=== PATIENT | female | born 1945 | race Asian ===

== ENCOUNTER 2017-12-26 13:25 | Day surgery (SDC) | payer OTHER ==
[2017-12-24 16:00] VITALS: BMI 20.6
[2017-12-26] MEDS ORDERED: MIDAZOLAM HCL 2 MG/2 ML SINGLE DOSE VIAL ONE (14:45)
[2017-12-26] MEDS ORDERED: PROPOFOL 20 ML ONE (14:45)
[2017-12-26] MEDS ORDERED: LIDOCAINE HCL/PF 2% SDV 5ML VIAL ONE (14:45)
[2017-12-26] MEDS ORDERED: LIDOCAINE HCL 2% (20ML MULTI-DOSE VIAL) NR ONE (14:46)
[2017-12-26] MEDS ORDERED: ONDANSETRON 4 MG/2 ML VIAL IVPUSH PRN (15:54)
[2017-12-26] MEDS ORDERED: oxyCODONE HCL 5 MG TABLET PO PRN (15:54)
[2017-12-26 15:58] VITALS: TEMP 97.6
[2017-12-26] MEDS ORDERED: LACTATED RINGERS SOLUTION 1,000 ML IV SCH (16:00)
[2017-12-26 16:22] VITALS: BP 114/60; PULSE 65
--- NOTE | 2017-12-27 10:15 | OP ---
DATE OF OPERATION: 12/26/2017 PREOPERATIVE DIAGNOSIS: Left long finger mucoid cyst and distal interphalangeal joint osteoarthritis. POSTOPERATIVE DIAGNOSIS: Left long finger mucoid cyst and distal interphalangeal joint osteoarthritis. OPERATIVE PROCEDURE: 1. Left long finger mass/mucoid cyst excision. 2. Left long finger distal interphalangeal joint debridement and synovectomy. SURGEON: Kevin Mandujano MD ANESTHESIA: Local with sedation. COMPLICATIONS: None. ESTIMATED BLOOD LOSS: Minimal. INDICATION FOR PROCEDURE: The patient is a 72-year-old female with the above finding indicated for operative treatment. Risks, benefits, and alternatives were discussed with the patient at length. Proper informed consent was obtained. DESCRIPTION OF PROCEDURE: After proper identification of patient and correct operative site, the patient was brought to the operating room and placed supine on the table, bony prominences well padded. Sedation was given by the anesthesiologist. Local anesthesia was given with 2% lidocaine. Left upper extremity was prepped and draped in the usual sterile fashion. A well-padded tourniquet was placed with a sterile prep. Esmarch bandage was used to exsanguinate the left upper extremity. Tourniquet was inflated to 250 mmHg. An incision was made over the distal aspect of the distal interphalangeal joint to the long finger. Incision was taken sharply to the skin with bluntly and sharply dissection to the subcutaneous tissues. Mass was identified as a cyst emanating from the distal interphalangeal joint and was excised in whole. The joint was also opened, and a bone spur was debrided and synovectomy was performed. Wound was irrigated with saline and repaired with a 5-0 nylon suture. Sterile dressings were applied. The patient was reversed from anesthesia and brought to the recovery room in stable condition. She tolerated the procedure well. KEVIN MANDUJANO M.D. [id number]
--- NOTE | 2018-01-01 15:09 | PATH ---
Surgical Pathology Report Patient Name: ANTHONY RUTHERFORD [facility]. Rec. #: [id number] /Age/Gender: 1945 (Age: 72) / F Account: [id number] Location: [facility] AMBULATORY Taken: 12/26/2017 Received: 12/26/2017 Reported: 01/01/2018 Physicians: Kevin Wilde M.D. Specimen(s) Received LEFT LONG FINGER MASS Clinical History Left long finger mucoid cyst Final Diagnosis LEFT LONG FINGER, MASS, EXCISION: DIGITAL MUCOUS (GANGLION) CYST. Electronically Signed Hina Tavarez M.D. Gross Description Received in formalin labeled "left long finger mass," is a 0.4 x 0.3 x 0.2 cm portion of ramírez soft tissue, possibly consistent with a cyst. The specimen is submitted in toto in one cassette. /12/27/201712/27/2017
== END 2017-12-26 16:55 | disposition home or self-care (01) ==
LOC: FASU 13:25
PROVIDERS: ATTEND Orthopaedic Surgery Hand Surgery
PROC: 0RBX0ZZ Excision of Left Finger Phalangeal Joint, Open Approach (ICD-10-PCS; 2017-12-26)
PROC: 0XBK0ZZ Excision of Left Hand, Open Approach (ICD-10-PCS; principal; 2017-12-26 15:18)
DX: M71.342 Other bursal cyst, left hand (principal); M19.042 Primary osteoarthritis, left hand
CPT/HCPCS: 88305-TC

== ENCOUNTER 2019-02-05 06:50 | Day surgery (SDC) | payer OTHER ==
[2019-01-27 17:04] VITALS: BMI 20.4
[2019-02-05] MEDS ORDERED: MIDAZOLAM HCL 2 MG/2 ML SINGLE DOSE VIAL ONE (07:47)
[2019-02-05] MEDS ORDERED: LIDOCAINE HCL 2% (50ML VIAL) INF ONE (08:59)
[2019-02-05 09:42] VITALS: TEMP 98.2
[2019-02-05] MEDS ORDERED: ACETAMINOPHEN 325 MG TABLET (FP) PO PRN (09:45)
[2019-02-05] MEDS ORDERED: oxyCODONE HCL 5 MG TABLET PO PRN (09:45)
[2019-02-05] MEDS ORDERED: ONDANSETRON 4 MG/2 ML VIAL IVPUSH PRN (09:45)
[2019-02-05] MEDS ORDERED: LACTATED RINGERS SOLUTION 1,000 ML IV SCH (09:45)
[2019-02-05 10:15] VITALS: BP 110/70; PULSE 56
--- NOTE | 2019-02-06 17:19 | OP ---
DATE OF OPERATION: 02/05/2019 PREOPERATIVE DIAGNOSES: 1. Left long finger mass/mucoid cyst. 2. Left long finger distal interphalangeal arthrosis. OPERATIVE PROCEDURE: 1. Left long finger mass excision. 2. Left long finger distal interphalangeal joint debridement with excision of bone spur. SURGEON: Kevin Mandujano MD ANESTHESIA: Local with sedation. COMPLICATIONS: None. ESTIMATED BLOOD LOSS: Minimal. INDICATION FOR PROCEDURE: The patient is a 73-year-old female with the above finding indicated for operative treatment. Risks, benefits, alternatives were discussed with the patient at length. Proper informed consent was obtained. DESCRIPTION OF PROCEDURE: After preoperative identification of patient, correct operative site, patient brought to the operating room, placed supine on the table, all prominences well padded. Sedation and local anesthesia were given. Left upper extremity was prepped and draped in the usual sterile fashion. A well-padded tourniquet was placed over the sterile prep. A V-shaped incision was made over the mass and elevated. The incision was taken sharply through the skin. The mass was excised in whole and traced down to the DIP joint. Spur was found in this area, and the joint was debrided and the spur was excised. Wound was repaired with 5-0 fast-absorbing plain gut. Sterile dressings were applied. Patient was brought to the recovery room in stable condition. She tolerated the procedure well. KEVIN MANDUJANO M.D. [id number]
--- NOTE | 2019-02-10 13:30 | PATH ---
Surgical Pathology Report Patient Name: ANTHONY RUTHERFORD [facility]. Rec. #: [id number] /Age/Gender: 1945 (Age: 73) / F Account: [id number] Location: [facility] AMBULATORY Taken: 02/05/2019 Received: 02/05/2019 Reported: 02/10/2019 Physicians: Kevin Wilde M.D. Specimen(s) Received LEFT LONG FINGER MASS Clinical History Left long finger mass Final Diagnosis LEFT LONG FINGER, MASS, EXCISION: GANGLION CYST. Electronically Signed Hina Tavarez M.D. Gross Description Received in formalin labeled "left long finger mass," is a 0.7 x 0.3 cm ramírez, elliptical, unoriented portion of skin excised to depth of 0.1 cm. The base is inked green and the specimen is trisected. No discrete mass is identified. The specimen is entirely submitted in one cassette. /02/06/2019 saudi/02/06/2019
== END 2019-02-05 10:18 | disposition home or self-care (01) ==
LOC: FASU 06:50
PROVIDERS: ATTEND Orthopaedic Surgery Hand Surgery
PROC: 0JBK0ZZ Excision of Left Hand Subcutaneous Tissue and Fascia, Open Approach (ICD-10-PCS; principal; 2019-02-05 08:30)
DX: D21.12 Benign neoplasm of connective and other soft tissue of left upper limb, including shoulder (principal)
CPT/HCPCS: 88305-TC

== ENCOUNTER 2021-11-23 09:58 | Day surgery (SDC) | payer OTHER ==
[2021-11-22 12:17] VITALS: BMI 19.5
[2021-11-23 11:46] VITALS: TEMP 97.7
[2021-11-23] MEDS ORDERED: ONDANSETRON 4 MG/2 ML VIAL ONE (11:46)
[2021-11-23] MEDS ORDERED: PROPOFOL 20 ML ONE (11:46)
[2021-11-23 12:42] VITALS: BP 103/57; PULSE 69
== END 2021-11-23 13:00 | disposition home or self-care (01) ==
LOC: FASU-ENDO 09:58
PROVIDERS: ATTEND Internal Medicine Gastroenterology
PROC: 0DB68ZX Excision of Stomach, Via Natural or Artificial Opening Endoscopic, Diagnostic (ICD-10-PCS; 2021-11-23)
PROC: 0DB48ZX Excision of Esophagogastric Junction, Via Natural or Artificial Opening Endoscopic, Diagnostic (ICD-10-PCS; 2021-11-23)
PROC: 0DB98ZX Excision of Duodenum, Via Natural or Artificial Opening Endoscopic, Diagnostic (ICD-10-PCS; principal; 2021-11-23 12:01)
DX: R10.13 Epigastric pain (principal); K20.90 Esophagitis, unspecified without bleeding; K44.9 Diaphragmatic hernia without obstruction or gangrene
CPT/HCPCS: 88305-TC; 88342-TC

== ENCOUNTER 2021-12-12 10:30 | Inpatient (IN) | payer OTHER ==
[2021-12-12] MEDS ORDERED: SODIUM CHLORIDE 0.9% 1000 ML INFUS.BAG IV ONE (10:55)
[2021-12-12] MEDS ORDERED: ONDANSETRON 4 MG/2 ML VIAL IVPUSH ONE (10:55)
[2021-12-12] MEDS ORDERED: ACETAMINOPHEN 1000 MG/100 ML BAG IVPB ONE (10:55)
[2021-12-12] MEDS ORDERED: ACETAMINOPHEN INJECTION 100 ML IVPB ONE (11:23)
[2021-12-12] MEDS ORDERED: ONDANSETRON 4 MG/2 ML VIAL ONE (11:23)
[2021-12-12 11:35] LABS: INR 0.89 (0.83-1.09); PROTHROMBIN TIME (PATIENT) 10.2 SEC (9.7-13.0)
[2021-12-12 11:38] LABS: ACTIVATED PTT 26.2 SECONDS (25.2-36.5); ALBUMIN 4.5 g/dl (3.4-5.0); BILIRUBIN,TOTAL 0.7 mg/dl (0.2-1); CALCIUM 9.3 mg/dl (8.5-10); CREATININE 0.8 mg/dl (0.55-1.3); TOT PROT 7.3 g/dl (6.4-8.2)
[2021-12-12 11:51] LABS: EPITHELIAL CELLS RARE /hpf; URINE MUCUS 1+
[2021-12-12] MEDS ORDERED: PIPERACILLIN/TAZOB 3.375 GM 3.375 GM in DEXTROSE 5%-WATER - 50 ML IVPB SCH ×2 (14:30→14:45)
[2021-12-12] MEDS ORDERED: PIPERACILLIN/TAZOBACTAM 3.375 GM VIAL IVPB ONE ×2 (14:31→22:32)
[2021-12-12] MEDS ORDERED: LACTATED RINGERS SOLUTION 1,000 ML/1,000 ML INFUS.BAG IV SCH (14:45)
[2021-12-12] MEDS ORDERED: MIDAZOLAM HCL 2 MG/2 ML SINGLE DOSE VIAL ONE (15:01)
[2021-12-12] MEDS ORDERED: PROPOFOL 20 ML ONE (15:01)
[2021-12-12] MEDS ORDERED: LIDOCAINE HCL/PF 2% SDV 5ML VIAL ONE (15:01)
[2021-12-12] MEDS ORDERED: ROCURONIUM BROMIDE 50 MG/5 ML SYRINGE ONE (15:01)
[2021-12-12] MEDS ORDERED: DEXAMETHASONE SOD PHOSPHATE 4 MG/1 ML VIAL ONE (15:01)
[2021-12-12 15:04] LABS: HEMATOCRIT 41.3 % (32.4-45.2); HEMOGLOBIN 13.6 GM/dL (10.7-15.3); MCH 29.2 pg (25.7-33.7); MCHC 32.8 g/dl (32.0-36.0); MEAN PLT VOLUME 8.2 fl (7.5-11.1); PLATELET COUNT 292 10^3/uL (134-434); RBC 4.64 M/mm3 (3.60-5.2); RDW 13.9 % (11.6-15.6); WHITE BLOOD COUNT 5.3 K/mm3 (4.0-10.0)
[2021-12-12] MEDS ORDERED: BUPIVACAINE HCL/PF 0.5% (5MG/ML) 10 ML VIAL ONE (15:09)
[2021-12-12] MEDS ORDERED: BUPIVACAINE HCL/PF 0.5% (5 MG/ML) 30 ML VIAL IJ ONE (18:05)
[2021-12-12] MEDS ORDERED: NEOSTIGMINE METHYLSULFATE 0.5 MG/ML - 10 ML MDV ONE (18:07)
[2021-12-12 18:12] LABS: ANISOCYTOSIS 1+; MACROCYTOSIS 0
[2021-12-12] MEDS ORDERED: oxyCODONE HCL 5 MG TABLET PO PRN (18:48)
[2021-12-12] MEDS: LACTATED RINGERS SOLUTION 1,000 ML/1,000 ML INFUS.BAG IV SCH (19:30)
[2021-12-12] MEDS ORDERED: DEXTROSE 5%-WATER - 50 ML IVPB ONE (22:33)
[2021-12-12] MEDS: PIPERACILLIN/TAZOB 3.375 GM 3.375 GM in DEXTROSE 5%-WATER - 50 ML IVPB SCH (23:02)
[2021-12-13] MEDS ORDERED: ACETAMINOPHEN 325 MG TABLET (FP) PO PRN (00:01)
[2021-12-13 00:43] VITALS: BMI 20.1
[2021-12-13] MEDS ORDERED: DEXTROSE 5%-WATER - 50 ML IVPB ONE ×2 (05:46→14:09)
[2021-12-13] MEDS ORDERED: PIPERACILLIN/TAZOBACTAM 3.375 GM VIAL IVPB ONE ×2 (05:46→14:09)
[2021-12-13] MEDS: PIPERACILLIN/TAZOB 3.375 GM 3.375 GM in DEXTROSE 5%-WATER - 50 ML IVPB SCH ×2 (05:53→14:16)
[2021-12-13 12:37] LABS: BASO % 0.2 % (0-2.0); EOS % 0.1 % (0-4.5); HEMOGLOBIN 11.1 GM/dL (10.7-15.3); LYMPH % 9.7 % (8-40); MCH 29.2 pg (25.7-33.7); MCHC 32.6 g/dl (32.0-36.0); MEAN CELL VOLUME 89.5 fl (80-96); MEAN PLT VOLUME 8.1 fl (7.5-11.1); MONO % 4.1 % (3.8-10.2); NEUT % 85.9 % (42.8-82.8); PLATELET COUNT 244 10^3/uL (134-434); RDW 14.3 % (11.6-15.6)
[2021-12-13 12:54] LABS: CALCIUM 8.6 mg/dL (8.5-10.1)
[2021-12-13 12:55] LABS: BLOOD UREA NITROGEN 15.2 mg/dL (7-18)
[2021-12-13] MEDS: LACTATED RINGERS SOLUTION 1,000 ML/1,000 ML INFUS.BAG IV SCH (17:04)
[2021-12-14 09:33] LABS: BASO % 0.5 % (0-2.0); EOS % 2.1 % (0-4.5); HEMATOCRIT 30.2 % (32.4-45.2); HEMOGLOBIN 10.4 GM/dL (10.7-15.3); LYMPH % 13.3 % (8-40); MCH 30.2 pg (25.7-33.7); MCHC 34.4 g/dl (32.0-36.0); MEAN PLT VOLUME 7.8 fl (7.5-11.1); MONO % 4.1 % (3.8-10.2); PLATELET COUNT 205 10^3/uL (134-434); RBC 3.43 M/mm3 (3.60-5.2); RDW 14.3 % (11.6-15.6); WHITE BLOOD COUNT 5.6 K/mm3 (4.0-10.0)
[2021-12-14 10:07] LABS: ALBUMIN 2.6 g/dl (3.4-5.0); BLOOD UREA NITROGEN 10.5 mg/dL (7-18)
[2021-12-14 10:08] LABS: MAGNESIUM 2.3 mg/dL (1.8-2.4)
[2021-12-14 10:10] LABS: BILIRUBIN,TOTAL 0.5 mg/dL (0.2-1); CREATININE 0.7 mg/dL (0.55-1.3)
[2021-12-14 10:11] LABS: TOT PROT 5.2 g/dl (6.4-8.2)
[2021-12-15] MEDS: LACTATED RINGERS SOLUTION 1,000 ML/1,000 ML INFUS.BAG IV SCH (04:32)
[2021-12-15 06:25] VITALS: BP 134/75; PULSE 71; TEMP 98.2
[2021-12-15 10:41] LABS: BASO % 0.4 % (0-2.0); EOS % 3.6 % (0-4.5); HEMOGLOBIN 12.1 GM/dL (10.7-15.3); LYMPH % 14.2 % (8-40); MCHC 32.7 g/dl (32.0-36.0); MEAN CELL VOLUME 88.8 fl (80-96); MONO % 4.9 % (3.8-10.2); NEUT % 76.9 % (42.8-82.8); PLATELET COUNT 263 10^3/uL (134-434); RBC 4.17 M/mm3 (3.60-5.2); RDW 14.1 % (11.6-15.6); WHITE BLOOD COUNT 5.2 K/mm3 (4.0-10.0)
[2021-12-15 11:15] LABS: ALBUMIN 2.8 g/dl (3.4-5.0); BLOOD UREA NITROGEN 9.9 mg/dL (7-18); CALCIUM 8.5 mg/dL (8.5-10.1); MAGNESIUM 2.2 mg/dL (1.8-2.4)
[2021-12-15 11:18] LABS: CREATININE 0.7 mg/dL (0.55-1.3)
[2021-12-15 11:19] LABS: BILIRUBIN,TOTAL 0.6 mg/dL (0.2-1)
[2021-12-15 11:20] LABS: TOT PROT 5.9 g/dl (6.4-8.2)
== END 2021-12-15 14:26 | disposition home or self-care (01) | DRG 340 ==
LOC: SUATTDRO 10:30 → FER 10:30 → JASUSAT 14:48 → SUATTDRO 14:48 → UNDOADMIN 18:35 → J2C 18:35 → J6S 19:56 → J2C 19:56 → J6S 19:57 → JASUSAT 19:57 → J6S 12-13 17:19
PROVIDERS: ADMIT Internal Medicine Infectious Disease; ATTEND Nurse Practitioner Family
PROC: 0DTJ4ZZ Resection of Appendix, Percutaneous Endoscopic Approach (ICD-10-PCS; principal; 2021-12-12 14:30)
DX: K35.33 Acute appendicitis with perforation, localized peritonitis, and gangrene, with abscess (principal); E78.5 Hyperlipidemia, unspecified; K21.9 Gastro-esophageal reflux disease without esophagitis; R10.31 Right lower quadrant pain
CPT/HCPCS: 36415; 71045-TC-FY; 74177-TC; 80048; 80053; 81003; 81015; 83735; 85025; 85610; 85730; 86850; 86900; 86901; 87086; 88304-TC; 93005; 94010; 94760; 97116-GP; 97162-GP; 99285-25; C9803; Q9967; U0003; U0005